=== PATIENT | male | born 1940 | race Caucasian/White ===

== ENCOUNTER 2024-02-24 14:47 | Inpatient (IN) | payer MEDICARE ==
[2024-02-24 15:23] LABS: #Basophils 0.07 10x3/uL (0.0-0.2); %Basophils 0.7 % (0.0-1.0); %Lymphocytes 12.1 % (21.0-51.0); %Monocytes 7.2 % (0.0-10.0); %Neutrophils 76.8 % (42.0-75.0); Hematocrit 49.9 % (42.0-52.0); Hemoglobin 17.4 g/dL (14.0-18.0); Mean Corpuscular HGB CONC 34.9 g/dL (32.0-36.0); Mean Corpuscular Hemoglobin 32.5 pg (27.0-31.0); Mean Corpuscular Volume 93.3 fL (78.0-98.0); Mean Platelet Volume 9.6 fL (7.4-10.4); Platelet Count 250 10x3/uL (130-400); Red Blood Cell (RBC) Count 5.35 mill/uL (4.70-6.10)
[2024-02-24 15:37] LABS: PTT 28.1 sec (22.9-36.1); Prothrombin Time 12.9 sec (12.0-14.7)
[2024-02-24 15:42] LABS: ALT (SGPT) 23 U/L (8-55); AST (SGOT) 20 U/L (5-34); Alkaline Phosphatase 73 U/L (40-110); Anion Gap 14 mmol/L (10-20); BUN (Urea Nitrogen) 18 mg/dL (8.4-25.7); Bilirubin, Total 1.3 mg/dL (0.2-1.2); Calc. Creatinine Clearance 0 mL/min (70-130); Calcium 9.3 mg/dL (7.8-10.44); Carbon Dioxide 26 mmol/L (23-31); Chloride 99 mmol/L (98-107); Estimated GFR 65; Globulin 3.2 g/dL (2.4-3.5); Glucose 119 mg/dL (83-110); Protein, Total 7.2 g/dL (5.8-8.1); Sodium 135 mmol/L (136-145)
[2024-02-24 15:44] LABS: Bacteria/HPF None Seen HPF (None Seen); Bilirubin Negative (Negative); Blood, Urine 3+ (Negative); CAUTI Indications for Culture Dysuria,urgency,freq; Clarity Clear (Clear); Glucose, Urine (Dipstick) Normal (Negative); Ketone, Urine Negative (Negative); Leukocyte Negative Leu/uL (Negative); Nitrite Negative (Negative); Protein, Urine (Dipstick) Negative (Neg-Trace); RBC/HPF Greater than 50 HPF (0-3); Specific Gravity, Urine 1.013 (1.002-1.036); Squamous Epithelial None Seen HPF (0-3); WBC/HPF 0-3 HPF (0-3); pH, Urine 6.5 (5.0-9.0)
[2024-02-24 15:46] LABS: Urine Culture Reflex No No
[2024-02-24 15:47] LABS: Troponin I Less than 0.010 ng/mL (< 0.028)
[2024-02-24] MEDS ORDERED: Aspirin Chewable 81 MG TAB ONE (17:05)
[2024-02-24] MEDS ORDERED: hydrALAZINE 20 MG/ML VIAL SLOW IVP PRN (17:30)
[2024-02-24] MEDS ORDERED: Lorazepam 2 MG/ML VIAL IM PRN (17:35)
[2024-02-24] MEDS ORDERED: Lorazepam 1 MG TAB PO PRN (17:35)
[2024-02-24] MEDS ORDERED: Electrolyte Replacement Protocol 1 EACH FS SCH (17:45)
[2024-02-24 18:03] LABS: Phosphorus 3.6 mg/dL (2.3-4.7)
[2024-02-24 18:05] LABS: Cardiac Risk 5.3 (Less than 4.5); Cholesterol 184 mg/dl (< 200 Desired); HDL Cholesterol 35 mg/dL (>60 Neg Risk); LDL Cholesterol, Calculated 125 mg/dL; Magnesium 2.3 mg/dL (1.6-2.6); Triglycerides 122 mg/dL (Less than 150)
[2024-02-24] MEDS ORDERED: Diazepam 10 MG/2 ML SYRINGE ONE ×2 (20:30→20:34)
[2024-02-25 00:43] VITALS: BMI 22.5
[2024-02-25] MEDS: Folic Acid 1 MG TAB PO SCH (01:04)
[2024-02-25] MEDS: Atorvastatin Calcium 40 MG TAB PO SCH (01:04)
[2024-02-25] MEDS: Multivit, Therapeutic 1 TAB PO SCH (01:04)
[2024-02-25] MEDS: Enoxaparin 40 MG (0.4 mL) SYRINGE SC SCH (09:53)
[2024-02-25] MEDS: Aspirin 81 mg Enteric Coated Tablet PO SCH (09:54)
[2024-02-25] MEDS: Thiamine 100 MG TAB PO SCH (09:54)
[2024-02-25] MEDS: Lisinopril 5 MG TAB PO SCH (13:11)
[2024-02-25] MEDS ORDERED: Lorazepam 1 MG TAB PO PRN (17:35)
[2024-02-26 04:12] LABS: Anion Gap 13 mmol/L (10-20); BUN (Urea Nitrogen) 20 mg/dL (8.4-25.7); Calc. Creatinine Clearance 60 mL/min (70-130); Calcium 8.9 mg/dL (7.8-10.44); Carbon Dioxide 23 mmol/L (23-31); Chloride 106 mmol/L (98-107); Estimated GFR 70; Glucose 116 mg/dL (83-110); Potassium 4.3 mmol/L (3.5-5.1); Sodium 138 mmol/L (136-145)
[2024-02-26] MEDS: Lisinopril 5 MG TAB PO SCH (09:29)
[2024-02-26 12:21] VITALS: BP 144/73; TEMP 98.2
[2024-02-26] MEDS ORDERED: Lorazepam 1 MG TAB PO PRN (17:35)
[2024-02-27] MEDS ORDERED: Fluticasone Propionate Nasal Spray 16 gm Bottle NASAL SCH (09:00)
[2024-02-27] MEDS ORDERED: Loratadine 10 MG TAB PO SCH (09:00)
[2024-02-27] MEDS ORDERED: Lorazepam 0.5 MG TAB PO PRN (17:35)
== END 2024-02-26 17:22 | DRG 304 ==
LOC: ERS 14:47 → ERHOLD 16:58 → 2SE 02-25 00:23 → OBSVTOIN 02-25 12:27
PROVIDERS: ADMIT Family Medicine; ATTEND Internal Medicine
DX: I10 Essential (primary) hypertension (principal); I63.89 Other cerebral infarction; L21.9 Seborrheic dermatitis, unspecified; R31.29 Other microscopic hematuria; F10.90 Alcohol use, unspecified, uncomplicated; Z79.899 Other long term (current) drug therapy; Z79.82 Long term (current) use of aspirin
CPT/HCPCS: 36415; 70450; 70551; 80048; 80053; 80061; 81001; 83036; 83735; 84100; 84443; 84484; 85025; 85610; 85730; 93005; 93306; 93880; 96372; 96374; G0378; J1650; J3360